=== PATIENT | female | born 1985 | race Hispanic/Latino ===

== ENCOUNTER 2022-11-13 10:48 | Inpatient (IN) | payer MEDICAID, OTHER, SELFPAY ==
[2022-11-15] MEDS ORDERED: Lidocaine 1% (PF) 30 ML VIAL SC PRN (21:37)
[2022-11-15] MEDS ORDERED: Promethazine HCl 25 MG/ML VIAL IM PRN (21:37)
[2022-11-15] MEDS ORDERED: Tranexamic Acid 1,000 MG/10 ML VIAL IVP PRN (21:37)
[2022-11-15] MEDS ORDERED: Misoprostol 200 MCG TAB PR PRN (21:37)
[2022-11-15] MEDS ORDERED: Ondansetron PF 4 MG/2 ML Vial IVP PRN (21:37)
[2022-11-15] MEDS ORDERED: hydrALAZINE 20 MG/ML VIAL SLOW IVP PRN (21:37)
[2022-11-15] MEDS ORDERED: Acetaminophen 500 MG TAB PO PRN (21:37)
[2022-11-15] MEDS ORDERED: fentaNYL 50 mcg/mL 1 mL Vial SLOW IVP PRN (21:37)
[2022-11-15] MEDS ORDERED: HYDROcodone/Acetaminophen 5/325 mg Tablet PO PRN (21:37)
[2022-11-15] MEDS ORDERED: Carboprost 250 MCG/ML AMP IM PRN (21:37)
[2022-11-15] MEDS ORDERED: Ibuprofen 800 MG TAB PO PRN (21:37)
[2022-11-15] MEDS ORDERED: Methylergonovine 0.2 MG/ML VIAL IM PRN (21:37)
[2022-11-15] MEDS ORDERED: Diphenoxylate HCl/Atropine Tablet PO PRN (21:37)
[2022-11-15 22:11] VITALS: BMI 36.2
[2022-11-15] MEDS: Lactated Ringer's 1,000 ML IV SCH (22:25)
[2022-11-15] MEDS ORDERED: NS w/ Oxytocin 30 units 500 ML IV SCH ×3 (22:30)
[2022-11-15] MEDS: Misoprostol 100 MCG TAB PO SCH (23:10)
[2022-11-15 23:14] LABS: Hematocrit 34.7 % (34.9-44.5); Hemoglobin 11.8 g/dL (12.0-15.5); Mean Corpuscular Hemoglobin 28.4 pg (27.0-33.0); Mean Corpuscular Volume 83.4 fl (81.6-98.3); Mean Platelet Volume 11.3 fl (7.4-10.4); Platelet Count 215 10x3/uL (150-450); RBC Distribution Width 18.6 % (11.5-14.5); Red Blood Cell (RBC) Count 4.16 10x6/uL (3.90-5.03)
[2022-11-15 23:39] LABS: HBSAg Index 0.17 S/CO (0-0.99); Hep B Surf Ag - L&D Non-Reactive S/CO (NonReactive); Syphilis Antibody Nonreactive (Nonreactive); Syphilis Antibody Index 0.04 S/CO (<1.00 Non-Reactive)
[2022-11-16] MEDS: Lactated Ringer's 1,000 ML IV SCH ×2 (03:12→06:15)
[2022-11-16] MEDS ORDERED: fentaNYL/Ropivacaine Epidural 100 ML ONE (06:29)
[2022-11-16] MEDS ORDERED: Acetaminophen 325 MG TAB PO PRN (07:10)
[2022-11-16] MEDS ORDERED: Naloxone HCl 0.4 mg/ml Vial IVP PRN ×2 (07:10)
[2022-11-16] MEDS ORDERED: ePHEDrine Sulfate 50 MG/10 ML VIAL SLOW IVP PRN (07:10)
[2022-11-16] MEDS ORDERED: Ondansetron PF 4 MG/2 ML Vial IVP PRN ×2 (07:10→14:09)
[2022-11-16] MEDS ORDERED: Promethazine HCl 25 MG/ML VIAL IM PRN (07:10)
[2022-11-16] MEDS ORDERED: Lactated Ringer's 500 ML IV PRN (07:10)
[2022-11-16] MEDS ORDERED: diphenhydrAMINE 50 MG/ML VIAL IVP PRN (07:10)
[2022-11-16] MEDS ORDERED: Moisturizing Cream (Eucerin) 113 GM JAR TOP PRN (07:10)
[2022-11-16] MEDS ORDERED: fentaNYL 2 mcg/Ropivacaine 0.2% Epidural 100 ML CADD EPIDURAL SCH (07:15)
[2022-11-16] MEDS ORDERED: Communication Order-Pharmacy FS SCH (07:15)
[2022-11-16] MEDS ORDERED: diphenhydrAMINE 25 MG CAP PO PRN (14:09)
[2022-11-16] MEDS ORDERED: Lanolin Ointment 7 GM TUBE TOP PRN (14:09)
[2022-11-16] MEDS ORDERED: Bisacodyl 10 MG SUPP PR PRN (14:09)
[2022-11-16] MEDS ORDERED: Boostrix 0.5 ML (Tdap) VIAL (>/=7 yrs of age) IM ONE (14:09)
[2022-11-16] MEDS ORDERED: hydrALAZINE 20 MG/ML VIAL SLOW IVP PRN (14:09)
[2022-11-16] MEDS ORDERED: HYDROcodone/Acetaminophen 5/325 mg Tablet PO PRN (14:09)
[2022-11-16] MEDS ORDERED: Benzocaine-Menthol 82.5 ML CAN TOP PRN (14:09)
[2022-11-16] MEDS ORDERED: Milk Of Magnesia 30 ML UDCUP PO PRN (14:09)
[2022-11-16] MEDS: Misoprostol 100 MCG TAB PO SCH (14:50)
[2022-11-16] MEDS: Ibuprofen 800 MG TAB PO SCH ×2 (15:09→21:54)
[2022-11-16] MEDS: Ferrous Sulfate 325 MG TAB PO SCH (17:52)
[2022-11-16] MEDS: Docusate 100 MG CAP PO SCH (21:54)
[2022-11-17] MEDS: Ibuprofen 800 MG TAB PO SCH ×2 (05:44→14:07)
[2022-11-17] MEDS: Ferrous Sulfate 325 MG TAB PO SCH (08:43)
[2022-11-17] MEDS: Docusate 100 MG CAP PO SCH (08:49)
[2022-11-17] MEDS ORDERED: Prenatal Vitamin 1 TAB PO SCH (09:00)
[2022-11-17 11:21] VITALS: BP 113/63; TEMP 98.1
== END 2022-11-17 14:35 | disposition home or self-care (01) | DRG 807 ==
LOC: CSHLD 11-15 21:32 → CSHPED 11-16 14:40
PROVIDERS: ADMIT Family Medicine; ATTEND Family Medicine
PROC: 10E0XZZ Delivery of Products of Conception, External Approach (ICD-10-PCS; principal; 2022-11-16)
DX: O48.0 Post-term pregnancy (principal); Z37.0 Single live birth; Z3A.40 40 weeks gestation of pregnancy; O69.81X0 Labor and delivery complicated by cord around neck, without compression, not applicable or unspecified
CPT/HCPCS: 36415; 51702; 85027; 86780; 86850; 86900; 86901; 87340; J2590; J7120